=== PATIENT | male | born 1995 | race Caucasian/White ===

== ENCOUNTER → 2022-07-17 | Outpatient (REF) | payer OTHER | LOC: M LAB REF 14:24 | PROVIDERS: ATTEND Physician Assistant Medical | DX: J02.9 Acute pharyngitis, unspecified (principal) ==

== ENCOUNTER → 2022-12-01 | Outpatient (REF) | payer OTHER | LOC: M SFHCDERM 10:04 | PROVIDERS: ATTEND Nurse Practitioner Family | DX: D48.9 Neoplasm of uncertain behavior, unspecified (principal); B07.9 Viral wart, unspecified ==